=== PATIENT | female | born 2000 | race Caucasian/White ===

== ENCOUNTER 2024-03-26 23:55 | Observation (INO) | payer OTHER, SELFPAY ==
[2024-03-27 00:08] VITALS: BP 127/79; BMI 26.2
[2024-03-27] MEDS: LR 1000 IV (00:10)
[2024-03-27 00:31] LABS: Hematocrit 31.2 % (37.0-47.0); Mean Corp Hgb Conc. 35.3 g/dL (33.0-37.0); Mean Corpuscular Hgb 31.3 pg (27.0-31.0); Mean Corpuscular Volume 88.6 fL (81.0-99.0); Mean Platelet Volume 11.1 fL (7.4-10.4); Platelet Count 180 10^3/uL (130-400); Red Blood Cell Count 3.52 10^6/uL (4.20-5.40); Red Cell Dist. Width 14.2 % (11.5-14.5)
[2024-03-27 00:51] LABS: Urine Albumin Negative (Neg - Trace); Urine Bilirubin Negative (Negative); Urine Character Clear (Clear); Urine Color Yellow; Urine Glucose Negative (Negative); Urine Ketone Negative (Negative); Urine Leukocyte Negative (Negative); Urine Nitrite Negative (Negative); Urine Occult Blood 3+ (Negative); Urine Specific Gravity 1.005 (<1.030); Urine Urobilinogen Negative (Neg - 1+)
[2024-03-27 01:06] LABS: Urine Bacteria Few (Negative); Urine White Cell 0-2 /HPF (0-5)
[2024-03-27] MEDS: AMOXIL 500 MG PO (01:16)
== END 2024-03-27 01:20 | disposition home or self-care (01) ==
LOC: LDRP 23:55
PROVIDERS: ADMITTING PHYSICIAN Obstetrics & Gynecology
DX: O46.93 Antepartum hemorrhage, unspecified, third trimester (principal); Z3A.31 31 weeks gestation of pregnancy; R39.15 Urgency of urination; R10.9 Unspecified abdominal pain
CPT/HCPCS: 81003; 81015; 85027; 86850; 86900; 86901; 87086; G0378